=== PATIENT | male | born 1965 | race Two or more races ===

== ENCOUNTER 2019-01-15 11:09 | Emergency (ER) | payer OTHER ==
[~2019-01-15] VITALS: Ht 162.6 cm; Wt 80.8 kg
--- NOTE | 2019-01-15 11:32 | NUR ---
CALLED FOR TRIAGE NOT IN THE WAITING ROOM
--- NOTE | 2019-01-15 11:51 | NUR ---
C/O LEFT SHOULDER AND HEAD PAIN, S/P 35LBS BOX FELL ON MY HEAD AT WORK x 2D -KO, -TRAUMA, -N/V. PAIN IS 2/10. SKIN INTACT AND NO ACUTE DISTRESS NOTED. PT IS AOX4 AND AMBULATORY. READY FOR EVAL.
--- NOTE | 2019-01-15 12:05 | NUR ---
CALLED RADIOLOGY FOR CT HEAD WITHOUT CONTRAST
--- NOTE | 2019-01-15 13:09 | NUR ---
PT TAKEN TO RADIOLOGY VIA CT Addendum: 01/15/19 at [address]*
--- NOTE | 2019-01-15 13:18 | NUR ---
PT BACK FROM CT. CESARIO WELL
--- NOTE | 2019-01-15 13:54 | NUR ---
CALLED RADIOLOGY TO F/U ON CT. INFORMED ME IT STILL NEEDED TO BE READ, AND WILL BE UPDATED IN THE SYSTEM
--- NOTE | 2019-01-15 14:36 | NUR ---
Patient discharged to home in stable condition. Written and verbal after care instructions given. Patient verbalizes understanding of instruction.
[2019-01-15 14:37] VITALS: BP 123/75
== END 2019-01-15 14:38 | disposition home or self-care (01) ==
LOC: ER 11:11
DX: S46.812A Strain of other muscles, fascia and tendons at shoulder and upper arm level, left arm, initial encounter (principal); S09.8XXA Other specified injuries of head, initial encounter; M62.838 Other muscle spasm; W20.8XXA Other cause of strike by thrown, projected or falling object, initial encounter; Y93.89 Activity, other specified; Y92.89 Other specified places as the place of occurrence of the external cause; Y99.0 Civilian activity done for income or pay
CPT/HCPCS: 70450; 99284; A4606